=== PATIENT | female | born 2000 | race Caucasian/White ===

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

== ENCOUNTER → 2023-05-13 | Outpatient (REF) | payer OTHER, MEDICAID ==
[~2023-05-13] MED LIST changes: +LAMI25TA PO; +PRAZ2CAP PO; +PROZ20CA11 PO
[2023-05-13 21:36] LABS: APPEARANCE, URINE CLOUDY (CLEAR); BACTERIA, URINE AUTO NEGATIVE (NEGATIVE); BILIRUBIN, URINE AUTO NEGATIVE (NEGATIVE); BLOOD, URINE BLOOD NEGATIVE (NEGATIVE); COLOR, URINE YELLOW (YELLOW); GLUCOSE, URINE (UA) AUTO NEGATIVE (NEGATIVE); KETONE, URINE AUTO 1+ mg/dL (NEGATIVE); LEUKOCYTE ESTERASE, URINE AUTO 1+ (NEGATIVE); MUCUS, URINE SMALL (NEGATIVE); NITRITE, URINE AUTO NEGATIVE (NEGATIVE); PROTEIN, URINE AUTO 1+ mg/dL (NEGATIVE); RBC, URINE AUTO 0 /HPF (0-3); SPECIFIC GRAVITY URINE AUTO 1.029 (1.002-1.035); SQUAMOUS EPITHELIAL CELL UR AU 26 /HPF (0-6); UROBILINOGEN, URINE AUTO 0.2 mg/dL (0.0-2.0); WBC, URINE AUTO 4 /HPF (0-3)
== END ==
LOC: M LAB REF 21:22
PROVIDERS: ATTEND Physician Assistant
DX: N39.0 Urinary tract infection, site not specified (principal)

== ENCOUNTER → 2024-05-15 | Outpatient (REF) | LOC: M EMP 08:25 | PROVIDERS: ATTEND Family Medicine | DX: Z11.52 Encounter for screening for COVID-19 (principal) ==

== ENCOUNTER → 2024-05-30 | Outpatient (REF) | LOC: M EMP 09:26 | PROVIDERS: ATTEND Family Medicine | DX: Z01.89 Encounter for other specified special examinations (principal) ==

== ENCOUNTER 2024-06-18 12:21 | Emergency (ER) | payer MEDICAID, OTHER, SELFPAY ==
[~2024-06-18] VITALS: Ht 157.5 cm; Wt 68.9 kg
[2024-06-18 14:05] LABS: BASO % 0.2 % (0.0-1.0); EOS # 0.5 10^3/uL (0.0-0.5); EOS % 4.4 % (0.0-3.0); HEMATOCRIT 38.1 % (36.0-47.0); HEMOGLOBIN 13.3 g/dl (12.0-15.5); LYMPH # 1.3 10^3/uL (1.5-5.0); LYMPH % 10.8 % (24.0-44.0); MEAN CORPUSCULAR HEMOGLOBIN 31.3 pg (27.0-33.0); MEAN CORPUSCULAR HGB CONC 34.9 g/dl (32.0-36.5); MEAN CORPUSCULAR VOLUME 89.6 fl (80.0-96.0); MONO # 0.9 10^3/uL (0.0-0.8); MONO % 7.1 % (2.0-8.0); NEUTROPHILS # 9.3 10^3/uL (1.5-8.5); NEUTROPHILS % 77.2 % (36.0-66.0); PLATELET COUNT, AUTOMATED 270 10^3/uL (150-450); RED BLOOD COUNT 4.25 10^6/uL (4.00-5.40)
[2024-06-18] MEDS: ONDANSETRON 4MG ORAL DISINTEGRATING TAB PO ONE (14:23)
[2024-06-18 14:35] LABS: ALBUMIN 3.7 G/DL (3.2-5.2); ALKALINE PHOSPHATASE 60 U/L (35-104); ALT/SGPT 22 U/L (7.0-40); AST/SGOT 20 U/L (<34); BILIRUBIN,TOTAL 0.8 MG/DL (0.3-1.2); BLOOD UREA NITROGEN 10 MG/DL (9-23); CALCIUM LEVEL 8.8 MG/DL (8.5-10.1); CARBON DIOXIDE LEVEL 25 MMOL/L (20-31); CHLORIDE LEVEL 103 MMOL/L (98-107); CREATININE FOR GFR 0.56 MG/DL (0.55-1.30); GLOMERULAR FILTRATION RATE > 60.0 (>60); GLUCOSE, FASTING 110 MG/DL (60-100); POTASSIUM SERUM 3.3 MMOL/L (3.5-5.1); SODIUM LEVEL 137 MMOL/L (136-145); TOTAL PROTEIN 7.6 G/DL (5.7-8.2)
[2024-06-18 14:45] VITALS: BP 109/61; TEMP 98.2; O2SAT 98
[2024-06-18] MEDS ORDERED: ONDA-282 PO (15:02)
== END 2024-06-18 15:19 | disposition home or self-care (01) ==
LOC: M ED 12:21
DX: A09 Infectious gastroenteritis and colitis, unspecified (principal); Z79.899 Other long term (current) drug therapy

== ENCOUNTER 2025-01-29 05:04 | Inpatient (IN) | payer OTHER, SELFPAY ==
[~2025-01-29] VITALS: Ht 160 cm; Wt 61.5 kg
[~2025-01-29 05:04] MED LIST changes: +ONDA-282 PO; +PROZ10CA11; -PROZ10CA7; -PROZ20CA11 PO; +PROZ20CA12 PO
[2025-01-29 05:37] LABS: PLATELET COUNT, AUTOMATED 369 10^3/uL (150-450)
[2025-01-29 06:02] LABS: ETHYL ALCOHOL (ETHANOL) 0.004 % (0.000-0.010)
[2025-01-29 06:03] LABS: ALT/SGPT 18 U/L (7.0-40); AST/SGOT 19 U/L (<34); CALCIUM LEVEL 9.4 MG/DL (8.5-10.1); CARBON DIOXIDE LEVEL 22 MMOL/L (20-31); CHLORIDE LEVEL 106 MMOL/L (98-107); CREATININE FOR GFR 0.64 MG/DL (0.55-1.30); GLOMERULAR FILTRATION RATE > 90.0 (>60); POTASSIUM SERUM 3.9 MMOL/L (3.5-5.1); SALICYLATE LEVEL < 3.0 MG/DL (<30); SODIUM LEVEL 139 MMOL/L (136-145)
[2025-01-29 06:10] LABS: HCG, SERUM QUALITATIVE NEGATIVE (NEGATIVE)
[2025-01-29] MEDS: NICOTINE 21 MG/24 HR 1 EA TRANSDERMAL TD ONE (07:48)
[2025-01-29 08:19] LABS: AMPHETAMINES LEVEL URINE NEGATIVE (NEGATIVE); BARBITURATES URINE NEGATIVE (NEGATIVE); BENZODIAZEPINES URINE NEGATIVE (NEGATIVE); COCAINE METABOLITE URINE NEGATIVE (NEGATIVE); METHADONE URINE NEGATIVE (NEGATIVE); OPIATES URINE NEGATIVE (NEGATIVE); PHENCYCLIDINE URINE NEGATIVE (NEGATIVE)
[2025-01-29 08:25] LABS: CANNABINOIDS URINE POSITIVE (NEGATIVE)
[2025-01-29] MEDS ORDERED: HOME MED LIST COMPLETE! XX SCH (13:00)
[2025-01-29] MEDS ORDERED: LORazepam 1 MG TAB PO PRN (14:05)
[2025-01-29] MEDS ORDERED: HALOPERIDOL 5 MG TAB PO PRN (14:05)
[2025-01-29] MEDS ORDERED: MAALOX 30 ML SUSP *UDC PO PRN (14:05)
[2025-01-29] MEDS ORDERED: traZODone 50 MG TAB PO PRN (14:05)
[2025-01-29] MEDS ORDERED: IBUPROFEN 400 MG TAB PO PRN (14:05)
[2025-01-29] MEDS ORDERED: OLANZapine 5 MG TAB PO PRN (14:05)
[2025-01-29] MEDS ORDERED: MOM 30 ML SUSPENSION UDC PO PRN (14:05)
[2025-01-29] MEDS ORDERED: ACETAMINOPHEN 325 MG TAB PO PRN (14:05)
[2025-01-29 16:35] VITALS: TEMP 98.5
[2025-01-30 06:23] VITALS: BP 136/76; TEMP 98.3; O2SAT 98
[2025-01-30] MEDS: NICOTINE 14 MG/24 HR TRANSDERMAL TD SCH (09:00)
[2025-01-30] MEDS: FLUoxetine 20 MG CAP PO SCH (09:29)
[2025-01-30] MEDS: NICOTINE POLACRILEX 2 MG GUM PO PRN (11:57)
[2025-01-31 06:28] VITALS: BP 100/57; TEMP 98.9; O2SAT 99
[2025-01-31 15:44] VITALS: BP 125/75; TEMP 97.3; O2SAT 97
[2025-02-01] MEDS: FLUoxetine 20 MG CAP PO SCH (08:30)
[2025-02-01] MEDS ORDERED: FLUO40CA PO (10:04)
== END 2025-02-01 12:07 | disposition home or self-care (01) | DRG 753 ==
LOC: M ED 05:04 → M ED INP 14:03 → M PSY 14:49
PROVIDERS: ADMIT Internal Medicine; ATTEND Internal Medicine
DX: F39 Unspecified mood [affective] disorder (principal); R45.851 Suicidal ideations; R73.9 Hyperglycemia, unspecified; F17.290 Nicotine dependence, other tobacco product, uncomplicated; Z91.51 Personal history of suicidal behavior; Z63.0 Problems in relationship with spouse or partner